=== PATIENT | male | born 1995 | race Hispanic/Latino ===

== ENCOUNTER 2023-11-24 19:16 | Inpatient (IN) | payer BC ==
[~2023-11-24] VITALS: Ht 157.5 cm; Wt 55.6 kg
[2023-11-24] MEDS: M.V.I. IV [ADULT] 10 ML, FOLIC ACID 1 MG, THIAMINE HCL 100 MG in 0.9%NACL 1000ML 1,000 ML IV SCH ×2 (20:00→21:04)
[2023-11-24 20:01] LABS: BASOPHILS # (AUTO) 0.04 K/uL (0.00-0.20); BASOPHILS % (AUTO) 0.3 % (0.0-5.0); IMMATURE GRANULOCYTE ABSOLUTE 0.05 K/uL (0-1); LYMPHOCYTES # (AUTO) 0.6 K/uL (1.0-4.8); LYMPHOCYTES % (AUTO) 4.6 % (21.0-51.0); MEAN CORPUSCULAR HEMOGLOBIN 28.9 pg (27.0-33.0); MEAN CORPUSCULAR HGB CONC 35.4 g/dL (32.0-36.0); MEAN CORPUSCULAR VOLUME 81.7 fL (79-99); MONOCYTES # (AUTO) 0.9 K/uL (0.1-1.0); MONOCYTES % (AUTO) 7.3 % (3.0-13.0); NEUTROPHILS # (AUTO) 10.7 K/uL (1.8-7.7); NEUTROPHILS % (AUTO) 87.4 % (40.0-77.0); PLATELET COUNT (AUTO) 104 K/uL (130-400); RED BLOOD CELL COUNT(AUTO) 4.53 MIL/uL (4.50-6.20); RED CELL DISTRIBUTION WIDTH 15.9 % (11.0-15.5); WHITE BLOOD COUNT (AUTO) 12.3 K/uL (4.8-10.8)
[2023-11-24 20:26] LABS: ALANINE AMINOTRANSFERASE 167 U/L (12-78); ALBUMIN 4.5 g/dL (3.5-5.0); ALCOHOL, BLOOD 31 mg/dL (0-10); ASPARTATE AMINOTRANSFERASE 198 U/L (10-37); CARBON DIOXIDE 21 mmol/L (21-32); CREATININE 0.9 mg/dL (0.5-1.3); GLOMERULAR FILTR. RATE CALC 118 mL/min (>90); GLUCOSE,RANDOM 121 mg/dL (70-105); SODIUM SERUM 126 mmol/L (136-145); UREA NITROGEN, BLOOD 4 mg/dL (7-18)
[2023-11-24 20:29] LABS: ACETAMINOPHEN < 1 mcg/mL (10-29); SALICYLATE < 2.8 mg/dL (2.8-20.0)
[2023-11-24 20:30] LABS: CHLORIDE 87 mmol/L (101-111); CREATINE KINASE, TOTAL 865 U/L (21-232); POTASSIUM 2.8 mmol/L (3.5-5.1)
[2023-11-24] MEDS: CHLORDIAZEPOXIDE HCL 25 MG CAP PO ONE (21:00)
[2023-11-24 21:06] LABS: APPEARANCE,URINE CLEAR (CLEAR); BILIRUBIN,URINE NEGATIVE (NEGATIVE); COLOR,URINE LIGHT-YELLOW (YELLOW); GLUCOSE, URINE (UA) 30 mg/dL (NEGATIVE); KETONES,URINE 5 mg/dL (NEGATIVE); LEUKOCYTE ESTERASE ,URINE NEGATIVE Leu/uL (NEGATIVE); NITRATE,URINE NEGATIVE (NEGATIVE); PH,URINE 5.5 (5.0-8.0); PROTEIN,URINE 20 mg/dL (NEGATIVE); UROBILINOGEN,URINE 0.2 mg/dL (0.2-1.0)
[2023-11-24 21:12] LABS: ADD UA MICROSCOPIC YES
[2023-11-24] MEDS ORDERED: DIPHENHYDRAMINE HCL 25 MG CAPSULE PO PRN (21:30)
[2023-11-24] MEDS ORDERED: POTASSIUM CHLORIDE 20MEQ/100ML 100 ML IV PRN (21:30)
[2023-11-24] MEDS ORDERED: MAG/ALUM/SIMETH 30 ML UDCUP PO PRN (21:30)
[2023-11-24] MEDS ORDERED: NITROGLYCERIN 0.4 MG SL TAB SL PRN (21:30)
[2023-11-24] MEDS ORDERED: PHARMACY COMMUNICATION MISC PRN (21:30)
[2023-11-24] MEDS ORDERED: GUAIFENESIN-DM 200/20 MG 10 ML PO PRN (21:30)
[2023-11-24] MEDS ORDERED: LACTULOSE 20 GM/30 ML UDCUP PO PRN (21:30)
[2023-11-24 21:36] LABS: BACTERIA,URINE Few /HPF (None Seen); RBC,URINE 0-1 /HPF (0-1); SQUAMOUS EPITHELIAL CELL,UR Rare /HPF (0-2); WBC,URINE 0-1 /HPF (0-1)
[2023-11-24 21:41] LABS: PLATELET MORPHOLOGY LARGE PLTS PRESENT
[2023-11-24 22:56] LABS: POTASSIUM 3.1 mmol/L (3.5-5.1)
[2023-11-24] MEDS: LORAZEPAM 2 MG/ML 1 ML VIAL IVP PRN (23:39)
[2023-11-24] MEDS: ONDANSETRON 4MG INJ IV PRN (23:39)
[2023-11-24] MEDS: CEFTRIAXONE 1G VIAL IV SCH (23:39)
[2023-11-25] MEDS: CHLORDIAZEPOXIDE HCL 25 MG CAP PO PRN (00:18)
[2023-11-25] MEDS: ACETAMINOPHEN 325 MG TAB PO PRN (02:39)
[2023-11-25] MEDS: KCL 20 MEQ ERTAB PO PRN (04:02)
[2023-11-25] MEDS: FAMOTIDINE 20MG VIAL IV SCH (08:18)
[2023-11-25] MEDS: MAGNESIUM 2GM PREMIX 50ML 50 ML IV PRN (08:18)
[2023-11-25] MEDS: POTASSIUM CHLORIDE 10% ELIXIR 20 MEQ/15 ML UDCUP PO PRN (08:18)
[2023-11-25 11:10] LABS: HEMATOCRIT 32.7 % (42-54); MEAN CORPUSCULAR HEMOGLOBIN 28.2 pg (27.0-33.0); MEAN CORPUSCULAR HGB CONC 34.6 g/dL (32.0-36.0); MEAN CORPUSCULAR VOLUME 81.5 fL (79-99); RED BLOOD CELL COUNT(AUTO) 4.01 MIL/uL (4.50-6.20); RED CELL DISTRIBUTION WIDTH 16.1 % (11.0-15.5); WHITE BLOOD COUNT (AUTO) 4.9 K/uL (4.8-10.8)
[2023-11-25 11:18] LABS: CREATININE 0.8 mg/dL (0.5-1.3); POTASSIUM 3.2 mmol/L (3.5-5.1)
[2023-11-25] MEDS: LACTATED RINGERS 1000ML IV ONE (11:44)
[2023-11-25 20:30] VITALS: BP 135/74; PULSE 99; RESP 18
[2023-11-25 20:45] VITALS: O2SAT 99
[2023-11-26] VITALS (9 sets, daily range): BP systolic 110–138; BP diastolic 52–88; PULSE 70–87; RESP 17–20; O2SAT 100
[2023-11-26 05:19] LABS: HEMATOCRIT 32.3 % (42-54); MEAN CORPUSCULAR HEMOGLOBIN 28.6 pg (27.0-33.0); MEAN CORPUSCULAR HGB CONC 33.4 g/dL (32.0-36.0); MEAN CORPUSCULAR VOLUME 85.4 fL (79-99); RED BLOOD CELL COUNT(AUTO) 3.78 MIL/uL (4.50-6.20); RED CELL DISTRIBUTION WIDTH 16.1 % (11.0-15.5); WHITE BLOOD COUNT (AUTO) 5.6 K/uL (4.8-10.8)
[2023-11-26 05:34] LABS: CREATININE 0.6 mg/dL (0.5-1.3); POTASSIUM 3.1 mmol/L (3.5-5.1)
[2023-11-26] MEDS: MORPHINE 2 MG SYG IV PRN (09:49)
[2023-11-26] MEDS ORDERED: KCL 20 MEQ ERTAB PO SCH (11:00)
[2023-11-26] MEDS: MORPHINE 4 MG SYG IV PRN (15:39)
[2023-11-27 03:34] VITALS: BP 130/87; PULSE 65; RESP 18
[2023-11-27 04:23] LABS: HEMATOCRIT 32.1 % (42-54); MEAN CORPUSCULAR HEMOGLOBIN 28.3 pg (27.0-33.0); MEAN CORPUSCULAR HGB CONC 32.4 g/dL (32.0-36.0); MEAN CORPUSCULAR VOLUME 87.5 fL (79-99); RED BLOOD CELL COUNT(AUTO) 3.67 MIL/uL (4.50-6.20); RED CELL DISTRIBUTION WIDTH 16.7 % (11.0-15.5); WHITE BLOOD COUNT (AUTO) 4.9 K/uL (4.8-10.8)
[2023-11-27 04:34] LABS: CREATININE 0.6 mg/dL (0.5-1.3); POTASSIUM 3.9 mmol/L (3.5-5.1)
[2023-11-27 08:00] VITALS: BP 115/83; PULSE 82; RESP 18
[2023-11-27 08:14] VITALS: O2SAT 100
[2023-11-27 12:00] VITALS: BP 128/97; PULSE 80; RESP 18
== END 2023-11-27 14:30 | disposition home or self-care (01) | DRG 897 ==
LOC: EDH 19:16 → EDHIP 21:24 → 4AH 11-25 18:27
PROVIDERS: ADMIT Hospitalist; ATTEND Hospitalist
DX: F10.139 Alcohol abuse with withdrawal, unspecified (principal); M62.82 Rhabdomyolysis; E86.0 Dehydration; E16.2 Hypoglycemia, unspecified; D72.829 Elevated white blood cell count, unspecified; R74.01 Elevation of levels of liver transaminase levels; E87.6 Hypokalemia; E83.42 Hypomagnesemia; Z79.899 Other long term (current) drug therapy
CPT/HCPCS: 36415; 71045; 76705; 80048; 80053; 81001; 82140; 82550; 83735; 84132; 84145; 85025; 85027; 87040; 96365; 96366; 96375; 99291; G0378; G0481; J0696; J2060; J2270; J2405; J3411; J3475; J3490; J7030